=== PATIENT | male | born 1970 | race Caucasian/White ===

== ENCOUNTER 2023-06-03 16:42 | Emergency (ER) | payer OTHER, SELFPAY ==
--- NOTE | ~2023-06-03 | CT_ITS ---
Clinical Indication: Pulmonary embolus CT Scan of the Chest with Contrast: Technique: Contiguous sections were acquired throughout the chest after intravenous administration of 100 cc of Omnipaque 350. Dose reduction technique was used on this scan by utilizing automated expos ure control and iterative reconstruction technique. The dose-length product (DLP) was 882.44 mGy-cm. Findings: There is no evidence of any significant mediastinal, hilar or axillary lymphadenopathy. There is no f illing defect in the pulmonary arterial tree to suggest pulmonary embolus. There is no evidence of ao rtic dissection or aneurysm. There is no evidence of pleural or pericardial effusion. The lungs are clear. No pulmonary nodules or infiltrates are noted. Images through the upper abdomen reveal no abnormalities. There are mild compression fracture or a T8 , T9, T10, T11. Impression: No evidence of pulmonary embolus, aortic dissection, or aortic aneurysm. Clear lungs. Compression fractures at T8, T9, T10, and T11, likely chronic. Reviewed, dictated and finalized at [facility]. Impression: No evidence of pulmonary embolus, aortic dissection, or aortic aneurysm. Clear lungs. Compression fractures at T8, T9, T10, and T11, likely chronic.
--- NOTE | ~2023-06-03 | XR_ITS ---
Clinical Indication: Shortness of breath PA and lateral views of the chest: Comparison: None Findings: The lungs are clear, without evidence of focal consolidation or pleural effusion. Cardiome diastinal silhouette is within normal limits. There is kyphosis of the thoracic spine with multiple c ompression deformities present in the mid thoracic spine. Impression: Clear lungs. Kyphosis with multiple mid thoracic spinal compression fracture deformities. Reviewed, dictated and finalized at location [facility]. Impression: Clear lungs. Kyphosis with multiple mid thoracic spinal compression fracture deformities.
[2023-06-03 16:45] VITALS: BP 100/72; PULSE 105; TEMP 36.2; O2SAT 98
--- NOTE | 2023-06-03 18:03 | ECG_ITS ---
Measurements Intervals [place] Rate: 110 P: -40 NV: 187 QRS: 44 QRSD: 82 T: 29 QT: 343 QTc: 466 Interpretive Statements SINUS TACHYCARDIA LOW QRS VOLTAGE IN PRECORDIAL LEADS BORDERLINE T WAVE ABNORMALITY- ANT/INF LEADS BASELINE ARTIFACT- II, AVF, V3 ABNORMAL ECG NO PREVIOUS ECG AVAILABLE FOR COMPARISON Electronically Signed On 06-03-2023 19:12:32 CDT by Jose Puente D.O.
[2023-06-03 18:33] LABS: Glucose Point of Care 220 mg/dl (65-105)
[2023-06-03 18:38] LABS: Basophils Absolute Auto 0.1 K/mm3 (0.0-0.1); Eosinophils Absolute Auto 0.2 K/mm3 (0-0.3); Eosinophils Percent Auto 1.2 % (0-4.4); Hematocrit 45.1 % (42.0-52.0); Hemoglobin 15.2 g/dL (14.0-18.0); Immature Granulocyte Absolute 0.37 K/mm3 (0.00-0.031); Lymphocytes Absolute Auto 3.85 K/mm3 (0.9-3.2); Lymphocytes Percent Auto 30.9 % (18.3-44.2); Mean Corpuscular HGB Conc 33.7 g/dl (32-36); Mean Corpuscular Hemoglobin 30.8 pg (26-34); Mean Corpuscular Volume 91.5 fl (80-100); Mean Platelet Volume 9.3 fl (7.4-10.4); Monocytes Absolute Auto 1.7 K/mm3 (0.1-0.6); Monocytes Percent Auto 13.6 % (2.6-8.5); Neutrophils Absolute Auto 6.3 K/mm3 (1.3-6.7); Neutrophils Percent Auto 50.3 % (45.5-73.1); Platelet Count Result 476 k/mm3 (150-375); Red Blood Count 4.93 M/mm3 (4.6-6.20); Red Cell Distribution Width 12.3 % (11.5-14.5); White Blood Count 12.5 K/mm3 (4.5-10.0)
[2023-06-03 18:46] LABS: Appearance Urine Clear (Clear); Bilirubin Urine Negative (Negative); Blood Urine Negative (Negative); Color Urine Dark Yellow (Yellow); Glucose Urine UA 3+ mg/dL (Negative); Ketones Urine Trace mg/dL (Negative); Leukocyte Esterase Ur Negative LEU/UL (Negative); Nitrate Urine Negative (Negative); Protein Urine Negative (Negative)
[2023-06-03 18:54] LABS: Beta-Hydroxybutyrate/Acetoacetate 0.22 mmol/L (0.02-0.27); Partial Thromboplastin Time 25.7 SECONDS (22.3-36.8); Prothrombin Time 13.3 Seconds (11.1-14.7)
[2023-06-03 18:55] LABS: Alanine Aminotransferase 105 U/L (6-50); Albumin Level 4.2 g/dL (3.5-5.1); Alkaline Phosphatase 114 U/L (38-126); Anion Gap 11 mmol/L (8-16); Aspartate Amino Transferase 67 U/L (17-59); Blood Urea Nitrogen 18 mg/dL (9-20); Calcium 8.6 mg/dL (8.4-10.2); Carbon Dioxide 20 mmol/L (22-30); Chloride 105 mmol/L (98-107); Estimated CRCL calculation 98 ml/min; Estimated Glomerular Filt Rate > 60; Glucose 205 mg/dL (65-110); Magnesium 2.3 mg/dL (1.6-2.3); Sodium 136 mmol/L (137-145)
[2023-06-03 19:01] LABS: NT Pro B Type Natriuretic Pept 31 pg/mL (19.9-100); Potassium 3.8 mmol/L (3.4-5.0); Troponin I < 0.012 ng/mL (0.000-0.034)
[2023-06-03] MEDS: ALBUTEROL SULFATE NEB 2.5 MG/3 ML INH INHALATION ×2 (19:14→21:35)
[2023-06-03] MEDS: SODIUM CHLORIDE 0.9% IV 1,000 ML 999 ML IV CONT ×2 (19:14→19:56)
[2023-06-03 19:17] LABS: Add Urine Microscopic? NO
[2023-06-03 19:20] VITALS: PULSE 100; RESP 14
[2023-06-03 19:30] VITALS: PULSE 100; RESP 14
[2023-06-03 19:58] LABS: D Dimer 1.31 ug/mL (<0.48)
--- NOTE | 2023-06-03 21:02 | ED.GENADULT ---
HPI - General Adult General Chief complaint: Shortness of Breath/Dyspnea Stated complaint: sob Time Seen by Provider: 06/03/23 18:12 History of Present Illness HPI narrative: 53-year-old male present emergency department for evaluation of intermittent shortness of breath. Patient states he has been having this issue intermittently over the past 2 weeks. Patient did have an episode last week and was seen in outside hospital. Patient states he had CHF and PE ruled out and was ultimately diagnosed with DKA. Patient did have follow-up with his primary care physician and he felt the shortness of breath was also related to DKA. Patient states today he had acute worsening of shortness of breath so he presented to the ED for evaluation. Patient had no shortness of breath on initial evaluation in the ED but then developed some tachypnea. Related Data Allergies Allergy/AdvReac Type Severity Reaction Status Date / Time NKDA Allergy Mild Uncoded 08/23/06 08:03 Review of Systems Review of Systems: All systems reviewed & are unremarkable except as noted in HPI and below Exam Narrative: APPEARANCE: Well appearing, no pain, no distress, well-nourished. HEAD: normocephalic, atraumatic. EYES: PERRLA/EOMI, conjunctivae clear. NOSE: Normal no drainage EARS:TMS clear with good light reflex. THROAT: Pharynx clear, no exudate. NECK: Supple. No adenopathy, no masses. RESPIRATORY: Airway patent, respirations nonlabored. Clear to auscultation bilaterally, no rales, rhonchi, wheezing. CARDIOVASCULAR: Regular rate and rhythm without murmurs rubs or gallops. ABDOMINAL: Soft, nontender, nondistended, normal bowel sounds MUSCULOSKELETAL: Moves all extremities. Strength/ROM intact, No edema, No calf tenderness. NEURO: Alert. Cranial nerves II through XII intact. SKIN: Warm, dry. Normal Color Course Course Emergency Course: 53-year-old male presented the ED for evaluation of shortness of breath. While patient did develop some tachypnea patient was never hypoxic. Patient did improve with a breathing treatment. Patient's D-dimer was elevated but CT a of the chest with no evidence of pulmonary embolism or pneumonia. Patient did have some ketones in his urine and was treated with IV fluids but patient had a normal beta-hydroxybutyrate no anion gap so no concern for DKA at this time. Patient's and family friend were updated on the results of the work-up. Patient was improved at time of discharge. All questions and concerns were addressed and patient was well-appearing at time of discharge. Patient was encouraged of close follow-up with his primary care physician for intermittent symptoms. Patient was also provided albuterol inhaler since this did appear to provide him some relief in the ED Vital Signs Vital signs: Vital Signs Temperature 97.2 F L 06/03/23 16:45 Pulse Rate 105 H 06/03/23 16:45 Blood Pressure 100/72 06/03/23 16:45 Pulse Oximetry 98 06/03/23 16:45 Oxygen Delivery High Flow Nasal Cannula 06/03/23 16:45 Oxygen Flow Rate 2 06/03/23 16:45 Temperature 97.2 F L 06/03/23 16:45 Pulse Rate 100 06/03/23 22:11 Respiratory Rate 14 06/03/23 22:11 Blood Pressure 118/77 06/03/23 22:06 Pulse Oximetry 99 06/03/23 22:06 Oxygen Delivery High Flow Nasal Cannula 06/03/23 16:45 Oxygen Flow Rate 2 06/03/23 16:45 Medical Decision Making Differential Diagnosis Differential Diagnosis: Pulmonary embolism, pneumonia, pneumothorax, anxiety, asthma, DKA Vital Signs Vital Signs: Vital Signs Temperature 97.2 F L 06/03/23 16:45 Pulse Rate 105 H 06/03/23 16:45 Blood Pressure 100/72 06/03/23 16:45 Pulse Oximetry 98 06/03/23 16:45 Oxygen Delivery High Flow Nasal Cannula 06/03/23 16:45 Oxygen Flow Rate 2 06/03/23 16:45 Temperature 97.2 F L 06/03/23 16:45 Pulse Rate 100 06/03/23 22:11 Respiratory Rate 14 06/03/23 22:11 Blood Pressure 118/77 06/03/23 22:06 Pulse Oximetry 99 07
[2023-06-03 21:12] LABS: Glucose Point of Care 178 mg/dl (65-105)
[2023-06-03 22:03] VITALS: PULSE 100; RESP 14
[2023-06-03 22:06] VITALS: BP 118/77; PULSE 104; RESP 19; O2SAT 99
[2023-06-03 22:11] VITALS: PULSE 100; RESP 14
== END 2023-06-03 22:27 | disposition home or self-care (01) ==
PROVIDERS: Physician Assistant; Emergency Provider Emergency Medicine
DX: R06.00 Dyspnea, unspecified (principal); R00.0 Tachycardia, unspecified; R94.31 Abnormal electrocardiogram [ECG] [EKG]
CPT/HCPCS: 36415; 71046; 71275; 80053; 81003; 82010; 82948; 83735; 83880; 84484; 85025; 85380; 85610; 85730; 93005; 94640; 96360; 96361; 99284; J7030; Q9967

== ENCOUNTER 2023-06-11 16:47 | Emergency (ER) | payer OTHER, SELFPAY ==
[2023-06-11] VITALS (15 sets, daily range): BP systolic 103–126; BP diastolic 66–87; PULSE 90–116; RESP 12–20; TEMP 36.6–36.9; O2SAT 93–99
--- NOTE | ~2023-06-11 | CT_ITS ---
EXAMINATION: CTA chest PE protocol DATE: 06/11/2023 18:25 INDICATION: SOB, tachycardic, +dimer TECHNIQUE: Computed tomography angiography (CTA) of the chest was performed with 100 mL Omnipaque-350 intravenous contrast timed to evaluate the pulmonary arteries. Coronal maximum intensity projection 3D-reconstructions were created by the technologist. The dose-length product (DLP) was 886.49 mGy-cm. Automated exposure control and iterative reconstruction technique were employed. COMPARISON: X-ray chest same date; CTPA 06/03/2023; CT abdomen pelvis 12/17/2018. FINDINGS: Lung parenchyma and airways: Stable calcified lingular granuloma. Lingular atelectasis/scar. Pleura: Unremarkable. Thoracic inlet, axillae and chest wall: Unremarkable. Thoracic aorta: No significant dilation. Minimal atherosclerotic calcification. The left vertebral ar srinivas takes its origin directly from the arch. Mediastinum: Normal. Heart and pericardium: Normal. Coronary artery calcifications: Absent. Upper abdomen: No significant finding. Bones: No acute osseous finding. Pulmonary arteries: Study quality: Adequate. No pulmonary emboli detected. IMPRESSION: No CT evidence of acute pulmonary embolus. No acute intrathoracic process detected. Reviewed, dictated and finalized at location [facility]. IMPRESSION: No CT evidence of acute pulmonary embolus. No acute intrathoracic process detec kelsey.
--- NOTE | ~2023-06-11 | XR_ITS ---
EXAMINATION: XR chest 2V Exam Date/Time: 06/11/2023 17:38 CDT HISTORY: Shortness of breath, low blood pressure Comparison: 06/03/2023. RESULT: Lines, tubes, and devices: None. Lungs and pleura: Low volumes with crowding. Otherwise clear. Cardiomediastinal silhouette: Stable. Other: No acute osseous or upper abdominal finding. Stable multilevel thoracic compression deformiti es and kyphosis. IMPRESSION: No acute cardiopulmonary process. Reviewed, dictated and finalized at location [facility].
--- NOTE | 2023-06-11 16:55 | PC.NURSE ---
Pt attempted to urinate at this time and unable to do so.
--- NOTE | 2023-06-11 16:57 | ECG_ITS ---
Measurements Intervals [place] Rate: 104 P: -46 MI: 184 QRS: 4 QRSD: 88 T: 17 QT: 345 QTc: 454 Interpretive Statements SINUS tACHYCARDIA LOW QRS VOLTAGE IN PRECORDIAL LEADS [QRS DEFLECTION < 1.0 mV IN CHEST LEADS] NONSPECIFIC T-WAVE ABNORMALITY ABNORMAL RHYTHM ECG COMPARED TO ECG 06/03/2023 18:29:59 NO SIGNIFICANT CHANGES Electronically Signed On 06-12-2023 7:43:48 CDT by Del Borjas M.D.
--- NOTE | 2023-06-11 16:59 | ED.SOB ---
HPI - SOB/Dyspnea General Chief Complaint: Shortness of Breath/Dyspnea Stated Complaint: diff. breathing Time Seen by Provider: 06/11/23 16:56 Source: patient, EMS and old records reviewed Mode of arrival: EMS Limitations: no limitations History of Present Illness HPI Narrative: Patient is a 53 y/o male who presents to the ED via EMS with report of SOB. Patient reports he has had intermittent episodes of shortness of breath and hypotension over the last 3 weeks. He has been seen in the ED 3 different times. One episode, he was found to be in DKA. He was seen here on 06/03 at which point his work-up was largely unremarkable. Patient reports today he was walking into his office at [employer] from the parking lot and began feeling short of breath once in his office. He states he checked his blood pressure and noted it to be low at that time, in the 80s systolic. He was also feeling weak, dizzy, and lightheaded at that time. SOB progressively worsened and patient was unable to catch his breath, at which point EMS was called. Patient states he has previously been diagnosed with copd vs asthma and rx'd breo inhaler. He was also rx'd albuterol inhaler at last ED visit, which he used today and thought felt slight relief of SOB. Patient denies feeling SOB currently but does feel dizzy with movement. Denies CP, recent illness, recent cough/cold sx's, abdominal pain, N/V, MORENO, vision changes, focal weakness. He denies feeling anxious during these episodes. Denies history of CAD, CHF, blood clots. Patient was taken off his antihypertensive medications 3 weeks ago. He was also started on insulin injections after his episode of DKA. He sees an business analyst consultant. He states his sugars lately have been 120s-180s. Related Data Allergies Allergy/AdvReac Type Severity Reaction Status Date / Time NKDA Allergy Mild Unknown Uncoded 06/11/23 16:58 Review of Systems Review of Systems: CONSTITUTIONAL: Denies fever, chills, or sweats. EYES: Denies visual changes. CARDIOVASCULAR: See HPI. RESPIRATORY: See HPI. GASTROINTESTINAL: Denies abdominal pain, nausea, vomiting. NEUROLOGIC: See HPI. PSYCHIATRIC: Denies anxiety or depression. All systems reviewed & are unremarkable except as noted in HPI and below Exam Narrative: GENERAL: Well appearing, obese with BMI of 34.2, non-toxic, in no acute distress. HEAD: Normocephalic, atraumatic. NECK: Supple. No adenopathy, no masses. RESPIRATORY: Airway patent, respirations nonlabored. Clear to auscultation bilaterally, no rales, rhonchi, wheezing. No focal lung sounds. CARDIOVASCULAR: Borderline tachycardic with regular rhythm without murmurs, rubs, or gallops. Radial pulses 2+ and equal bilaterally. ABDOMINAL: Soft, nontender, nondistended, no hepatosplenomegaly. Normoactive BS. MUSCULOSKELETAL: Moves all extremities. Strength/ROM intact without gross deformities. No edema. No calf tenderness. SKIN: Warm, dry, face appears slightly flushed. No rashes. NEURO: A&O X3. Speech clear. Cranial nerves II-XII grossly intact. Steady gait. No ataxic movements. PSYCHIATRIC: Appropriate mood and affect. Normal interaction. Course Vital Signs Vital signs: Vital Signs Temperature 98.4 F 06/11/23 16:48 Pulse Rate 102 H 06/11/23 16:48 Respiratory Rate 20 06/11/23 16:48 Blood Pressure 126/87 06/11/23 16:48 Pulse Oximetry 97 06/11/23 16:48 Oxygen Delivery Room Air 06/11/23 16:48 Temperature 98.1 F 06/11/23 22:03 Pulse Rate 93 06/11/23 22:03 Respiratory Rate 12 06/11/23 22:03 Blood Pressure 113/83 06/11/23 22:03 Pulse Oximetry 93 06/11/23 22:03 Oxygen Delivery Room Air 06/11/23 16:59 MDM - SOB/Dyspnea MDM Narrative Medical decision making narrative: Patient denying shortness of breath upon my evaluation. Cardiac work-up reassuring. EKG without ischemic changes. No significant changes from previous. Baseline Troponin negative. BNP WNL. CXR negative. D-dimer minimally elevate
[2023-06-11 17:12] LABS: Basophils Absolute Auto 0.1 K/mm3 (0.0-0.1); Basophils Percent Auto 0.8 % (0.2-1.2); Eosinophils Percent Auto 0.4 % (0-4.4); Hematocrit 43.4 % (42.0-52.0); Hemoglobin 14.6 g/dL (14.0-18.0); Immature Granulocyte Absolute 0.04 K/mm3 (0.00-0.031); Immature Granulocyte Percent A 0.5 % (0-0.5); Lymphocytes Absolute Auto 2.53 K/mm3 (0.9-3.2); Lymphocytes Percent Auto 32.4 % (18.3-44.2); Mean Corpuscular HGB Conc 33.6 g/dl (32-36); Mean Corpuscular Hemoglobin 30.7 pg (26-34); Mean Corpuscular Volume 91.4 fl (80-100); Mean Platelet Volume 9.2 fl (7.4-10.4); Monocytes Absolute Auto 0.9 K/mm3 (0.1-0.6); Monocytes Percent Auto 11.3 % (2.6-8.5); Neutrophils Absolute Auto 4.3 K/mm3 (1.3-6.7); Neutrophils Percent Auto 54.6 % (45.5-73.1); Platelet Count Result 287 k/mm3 (150-375); Red Blood Count 4.75 M/mm3 (4.6-6.20); Red Cell Distribution Width 12.4 % (11.5-14.5); White Blood Count 7.8 K/mm3 (4.5-10.0)
[2023-06-11 17:39] LABS: Alanine Aminotransferase 85 U/L (6-50); Alkaline Phosphatase 137 U/L (38-126); Anion Gap 12 mmol/L (8-16); Aspartate Amino Transferase 50 U/L (17-59); Bilirubin,Total 0.8 mg/dL (0.2-1.3); Blood Urea Nitrogen 18 mg/dL (9-20); Calcium 8.7 mg/dL (8.4-10.2); Carbon Dioxide 17 mmol/L (22-30); Chloride 102 mmol/L (98-107); Estimated CRCL calculation 123 ml/min; Estimated Glomerular Filt Rate > 60; Glucose 294 mg/dL (65-110); Potassium 3.7 mmol/L (3.4-5.0); Sodium 131 mmol/L (137-145)
[2023-06-11 17:46] LABS: Magnesium 1.9 mg/dL (1.6-2.3)
[2023-06-11] MEDS: MECLIZINE HCL 25 MG TABLET PO (17:47)
[2023-06-11] MEDS: SODIUM CHLORIDE 0.9% IV 1,000 ML 999 ML IV CONT ×2 (17:47→19:28)
[2023-06-11 17:51] LABS: Beta-Hydroxybutyrate/Acetoacetate 0.19 mmol/L (0.02-0.27)
[2023-06-11 17:54] LABS: D Dimer 0.55 ug/mL (<0.48)
[2023-06-11 17:59] LABS: NT Pro B Type Natriuretic Pept < 20 pg/mL (19.9-100); Troponin I < 0.012 ng/mL (0.000-0.034)
--- NOTE | 2023-06-11 18:55 | PC.NURSE ---
Pt attempted to void at this time with no success.
[2023-06-11 20:42] LABS: Troponin I < 0.012 ng/mL (0.000-0.034)
[2023-06-11 21:01] LABS: Thyroid Stimulating Hormone 0.753 uIU/mL (0.465-4.680)
[2023-06-11 21:38] LABS: Appearance Urine Clear (Clear); Bilirubin Urine Negative (Negative); Blood Urine Negative (Negative); Color Urine Yellow (Yellow); Glucose Urine UA 2+ mg/dL (Negative); Ketones Urine Negative (Negative); Leukocyte Esterase Ur Negative LEU/UL (Negative); Nitrate Urine Negative (Negative); Protein Urine Negative (Negative); Specific Grav Ur 1.035 (1.001-1.035); pH Urine 5.5 (5.0-9.0)
[2023-06-13 10:11] LABS: Add Urine Microscopic? NO
== END 2023-06-11 22:04 | disposition home or self-care (01) ==
PROVIDERS: Emergency Provider Physician Assistant; PCP Family Medicine Sports Medicine
DX: R06.00 Dyspnea, unspecified (principal); I95.1 Orthostatic hypotension; E86.0 Dehydration; E11.65 Type 2 diabetes mellitus with hyperglycemia
CPT/HCPCS: 36415; 71046; 71275; 80053; 81001; 81003; 82010; 83735; 83880; 84443; 84484; 85025; 85380; 93005; 96360; 96361; 99284; A9270; J7030; Q9967